=== PATIENT | male | born 1970 | race Caucasian/White ===

== ENCOUNTER → 2016-07-28 | Outpatient (CLI) | payer OTHER ==
[2016-07-28 10:46] LABS: ALANINE AMINOTRANSFERASE 27 U/L (21-72); ALBUMIN 3.4 g/dL (3.5-5.0); ALKALINE PHOSPHATASE 63 U/L (38-126); ANION GAP 11 (5-19); ASPARTATE AMINO TRANSFERASE 12 U/L (17-59); BILIRUBIN,TOTAL 1.2 mg/dL (0.2-1.3); BLOOD UREA NITROGEN 17 mg/dL (7-20); CALCIUM 9.1 mg/dL (8.4-10.2); CARBON DIOXIDE 26 mmol/L (22-30); CHLORIDE 97 mmol/L (98-107); CHOLESTEROL 286.59 mg/dL (0-200); CREATININE RESULT 1.07 mg/dL (0.52-1.25); Direct HDL 45 mg/dL (>40); GLUCOSE 336 mg/dL (75-110); POTASSIUM 4.8 mmol/L (3.6-5.0); SODIUM 134.3 mmol/L (137-145); TOTAL PROTEIN 6.3 g/dL (6.3-8.2); TRIGLYCERIDES 178 mg/dL (<150)
[2016-07-28 10:57] LABS: DIRECT LDL 216 mg/dL (<100)
[2016-07-28 11:05] LABS: VLDL CHOLESTEROL 35.6 mg/dL (10-31)
== END ==
LOC: OD 09:20
PROVIDERS: ATTEND Internal Medicine Cardiovascular Disease
DX: I10 Essential (primary) hypertension (principal); E78.2 Mixed hyperlipidemia
CPT/HCPCS: 36415; 80053; 80061

== ENCOUNTER 2016-08-11 11:23 | Inpatient (IN) | payer OTHER ==
--- NOTE | 2016-08-11 11:55 | ER Document Report ---
ED Medical Screen (RME) - General Stated Complaint: ABDOMINAL PAIN Notes: onset: 2 days ago but has this on/off for the past 6 months c/o abdominal pain starting in the epigastric area without n/v. Last BM: today, nl denies burning chest pain DM, HTN, HLD denies etoh use I have greeted and performed a rapid initial assessment of this patient. A comprehensive ED assessment and evaluation of the patient, analysis of test results and completion of the medical decision making process will be conducted by additional ED providers. TRAVEL OUTSIDE OF THE [place] IN LAST 30 DAYS: No - Related Data Allergies/Adverse Reactions: codeine [Codeine] Allergy (Verified 08/11/16 11:52) Past Medical History - Past Medical History Cardiac Medical History: Reports: Hx Coronary Artery Disease, Hx Heart Attack - 40's, Hx Hypertension Endocrine Medical History: Reports: Hx Diabetes Mellitus Type 2 Psychiatric Medical History: Denies: Hx Depression Past Surgical History: Reports: Hx Cardiac Catheterization, Hx Cardiac Surgery - CABG, Hx Cholecystectomy - Immunizations Hx Diphtheria, Pertussis, Tetanus Vaccination: Yes Physical Exam - Vital signs Vitals: Temp Pulse Resp BP Pulse Ox 97.7 F 85 18 182/97 H 97 08/11/16 11:27 08/11/16 11:27 08/11/16 11:27 08/11/16 11:27 08/11/16 11:27 Course - Vital Signs Vital signs: Temp Pulse Resp BP Pulse Ox 97.7 F 85 18 182/97 H 97 08/11/16 11:27 08/11/16 11:27 08/11/16 11:27 08/11/16 11:27 08/11/16 11:27
--- NOTE | 2016-08-11 12:21 | ER Document Report ---
ED General - General Chief Complaint: Lower Abdominal Pain Stated Complaint: ABDOMINAL PAIN Mode of Arrival: Ambulatory Information source: Patient Notes: Patient presents to the emergency department with complaints of abdominal pain for the past 2 days. Patient gives history of the same abdominal pain in May. He reports he was evaluated twice int the emergency department at that time and they could never find what was wrong with him. He reported he never followed up with GI or primary care provider for this pain. He reports it eventually went away. He c/o upper abdominal pain, pain worse on right side. denies fever vomiting diarrhea. Reports he has lost 20 lbs in 2 weeks. Just finished prednisone for bronchitis. TRAVEL OUTSIDE OF THE [place] IN LAST 30 DAYS: No - HPI Onset: Other - 2 days Quality of pain: Achy Severity: Severe Pain Level: 4 Associated symptoms: None Exacerbated by: Denies Relieved by: Denies - Related Data Allergies/Adverse Reactions: codeine [Codeine] Allergy (Verified 08/11/16 11:52) Home Medications: Current Home Medications Aspirin [Aspirin 81 mg Chewable Tablet] 81 mg PO DAILY 08/11/16 [History] Carvedilol [Coreg 25 mg Tablet] 25 mg PO Q12 08/11/16 [History] Hydrochlorothiazide [Hydrodiuril 25 mg Tablet] 25 mg PO DAILY 08/11/16 [History] Loratadine [Claritin 10 mg Tablet] 10 mg PO DAILY 08/11/16 [History] Metformin HCl [Glucophage] 1,000 mg PO TID 08/11/16 [History] Rosuvastatin Calcium [Crestor] 40 mg PO DAILY 08/11/16 [History] Past Medical History - General Information source: Patient - Social History Smoking Status: Never Smoker Cigarette use (# per day): No Frequency of alcohol use: Occasional Drug Abuse: None Occupation: [employer] Lives with: Family Family History: Reviewed & Not Pertinent Patient has suicidal ideation: No Patient has homicidal ideation: No - Past Medical History Cardiac Medical History: Reports: Hx Coronary Artery Disease, Hx Heart Attack - 40's, Hx Hypertension Endocrine Medical History: Reports: Hx Diabetes Mellitus Type 2 Renal/ Medical History: Denies: Hx Peritoneal Dialysis Psychiatric Medical History: Denies: Hx Depression Past Surgical History: Reports: Hx Cardiac Catheterization, Hx Cardiac Surgery - CABG, Hx Cholecystectomy - Immunizations Hx Diphtheria, Pertussis, Tetanus Vaccination: Yes Hx Pneumococcal Vaccination: 05/02/14 Review of Systems - Review of Systems Notes: Review HPI for review of systems., All other systems negative Physical Exam - Vital signs Vitals: Temp Pulse Resp BP Pulse Ox 97.7 F 85 18 182/97 H 97 08/11/16 11:27 08/11/16 11:27 08/11/16 11:27 08/11/16 11:27 08/11/16 11:27 - Notes Notes: PHYSICAL EXAMINATION: GENERAL: Nontoxic looking in no acute distress HEAD: Atraumatic, normocephalic. EYES: Pupils equal round extraocular movements intact, sclera anicteric, conjunctiva are normal. ENT: nares patent, Moist mucous membranes. NECK: Normal range of motion, supple without lymphadenopathy LUNGS: CTAB and equal. No wheezes rales or rhonchi. HEART: Regular rate and rhythm without murmurs ABDOMEN: Soft, upper abdominal tenderness. No guarding, no rebound BACK: Denies pain EXTREMITIES: Normal range of motion, no pitting edema. No cyanosis. NEUROLOGICAL: Cranial nerves grossly intact. Normal sensory/motor exams. PSYCH: Normal mood, normal affect. SKIN: Warm, Dry, normal turgor, no rashes or lesions noted Course - Re-evaluation Re-evalutation: 08/11/16 13:25 I have consulted the attending provider dr venegas per [facility] guidelines, agrees with ct 08/11/16 15:03 CT reviewed no acute process, dr venegas consulted, he went in to assess patient , reports if pt can tolerated PO fluids, decreased pain with percocet he will be okay to go home, fu with pcp, GI. Pt updated on plan and agree's. 08/11/16 15:40 The Percocet given 30 minutes go still having abdominal pain. Discussed with dr venegas, he advised admission, contacted Dr England. 08/11/16 16:00 dr yifan bonds consulted agree's to admission - Vital Signs Vital signs: Temp Pulse Resp BP Pulse Ox 98.6 F 80 16 158/102 H 98 08/11/16 16:06 08/11/16 16:06 08/11/16 18:01 08/11/16 18:00 08/11/16 18:01 - Laboratory Result Diagrams: 08/11/16 12:10 08/11/16 12:10 Laboratory results interpreted by me: 08/11/16 08/11/16 08/11/16 12:10 12:10 12:10 WBC 16.5 H RBC 5.74 H Plt Count 540 H Absolute Neutrophils 12.2 H Sodium 133.6 L Glucose 334 H AST 12 L C-Reactive Protein 19.8 H Amylase 127 H Lipase 677.1 H Urine Protein Urine Glucose (UA) Urine Ketones Urine Blood 08/11/16 12:41 WBC RBC Plt Count Absolute Neutrophils Sodium Glucose AST C-Reactive Protein Amylase Lipase Urine Protein >=500 H Urine Glucose (UA) >=500 H Urine Ketones TRACE H Urine Blood SMALL H - Diagnostic Test Radiology reviewed: Image reviewed, Reports reviewed - IMPRESSION: NO SIGNIFICANT OR ACUTE FINDING IN THE ABDOMEN OR PELVIS ON CT SCAN WITH IV CONTRAST - Consults No standard instances Time consulted: 15:43 Reason for consultation: 08/11/16 15:[address] england for abdominal pain admission Discharge - Discharge Clinical Impression: Abdominal pain, Elevated amylase and lipase Condition: Stable Disposition: ADMITTED INPATIENT Admitting Provider: Isela Morgan cammie Unit Admitted: Medical Floor
[2016-08-11 12:38] LABS: ABSOLUTE BASOPHILS # (AUTO) 0.2 10^3/uL (0.0-0.2); ABSOLUTE EOSINOPHILS # (AUTO) 0.3 10^3/uL (0.0-0.6); ABSOLUTE LYMPHOCYTES (AUTO) 2.8 10^3/uL (0.5-4.7); ABSOLUTE MONOCYTES (AUTO) 0.9 10^3/uL (0.1-1.4); ABSOLUTE NEUT (AUTO) 12.2 10^3/uL (1.7-8.2); BASOPHILS % (AUTO) 1.3 % (0-2); HEMATOCRIT 48.4 % (37.9-51.0); HEMOGLOBIN 16.3 g/dL (13.5-17.0); HGB HCT DIFFERENCE 0.5; LYMPHOCYTES % (AUTO) 16.9 % (13-45); MEAN CORPUSCULAR HEMOGLOBIN 28.4 pg (27.0-33.4); MEAN CORPUSCULAR HGB CONC 33.7 g/dL (32.0-36.0); MEAN CORPUSCULAR VOLUME 84 fl (80-97); MONOCYTES % (AUTO) 5.7 % (3-13); RED BLOOD COUNT 5.74 10^6/uL (4.35-5.55); RED CELL DISTRIBUTION WIDTH 12.5 % (11.5-14.0); SEGMENTED NEUTROPHILS % (AUTO) 74.1 % (42-78); WHITE BLOOD COUNT 16.5 10^3/uL (4.0-10.5)
[2016-08-11 12:44] LABS: ALANINE AMINOTRANSFERASE 25 U/L (21-72); ALBUMIN 3.5 g/dL (3.5-5.0); ALKALINE PHOSPHATASE 77 U/L (38-126); AMYLASE 127 U/L (30-110); ANION GAP 8 (5-19); ASPARTATE AMINO TRANSFERASE 12 U/L (17-59); BLOOD UREA NITROGEN 18 mg/dL (7-20); CALCIUM 9.6 mg/dL (8.4-10.2); CARBON DIOXIDE 28 mmol/L (22-30); CHLORIDE 98 mmol/L (98-107); CREATININE RESULT 1.03 mg/dL (0.52-1.25); GLUCOSE 334 mg/dL (75-110); LIPASE 677.1 U/L (23-300); SODIUM 133.6 mmol/L (137-145); TOTAL PROTEIN 6.5 g/dL (6.3-8.2)
[2016-08-11 13:05] LABS: APPEARANCE,URINE SLIGHTLY-CLOUDY; BILIRUBIN,URINE NEGATIVE (NEGATIVE); GLUCOSE, URINE >=500 mg/dL (NEGATIVE); KETONES,URINE TRACE mg/dL (NEGATIVE); LEUKOCYTE ESTERASE,URINE NEGATIVE (NEGATIVE); NITRITE,URINE NEGATIVE (NEGATIVE); PROTEIN,URINE >=500 mg/dL (NEGATIVE); URINE SPECIFIC GRAVITY 1.029; UROBILINOGEN,URINE NEGATIVE mg/dL (<2.0)
[2016-08-11] MEDS ORDERED: OXYCODONE-ACETAMINOPHEN 5-325 MG TABLET PO ONE (15:01)
[2016-08-11] MEDS ORDERED: ACETAMINOPHEN 325 MG TABLET PO PRN (17:13)
[2016-08-11] MEDS ORDERED: IPRATROPIUM/ALBUTEROL 0.5-2.5 MG/3 ML AMPUL NEB PRN (17:13)
[2016-08-11] MEDS ORDERED: ALBUTEROL SULFATE 0.083% NEB 2.5 MG/3 ML AMPUL NEB PRN (17:13)
[2016-08-11] MEDS ORDERED: METOPROLOL TARTRATE PF/INJ 5 MG/5 ML SDV IV PRN (17:22)
[2016-08-11] MEDS ORDERED: GLUCAGON,HUMAN RECOMB 1 MG INJ IM PRN (17:24)
[2016-08-11] MEDS ORDERED: DEXTROSE 50%-WATER 25 GM/50 ML DISP.SYRIN IV PRN ×2 (17:24)
[2016-08-11] MEDS ORDERED: DEXTROSE 40% GEL 15 GM TUBE PO PRN ×2 (17:24)
--- NOTE | 2016-08-11 17:45 | PDOC H&P ---
History of Present Illness Admission Date/PCP: 08/11/16 16:08 Patient complains of: Epigastric pain History of Present Illness: SHARI FAM JR is a 46 year old male whose PCP is Dr. Luo, linting machine operator is Dr. Tse presents to the ER from home with a 2 day history of sudden onset sharp stabbing epigastric pain radiating through to his back, no alleviating or exacerbating factors, associated with some shortness of breath and nausea with loss of appetite but no cardiac type chest pain, palpitations, fevers, chills, diarrhea, constipation or any change in his stools, dysuria, headache, dizziness , numbness and tingling, syncope or presyncope. This is the second such episode since May when it was considered potential cardiac equivalent and he was evaluated in the emergency department and ruled out for acute cardiac ischemia, sent home with pain medicines and a referral for gastroenterology evaluation. He does have a strong coronary history having undergone 4 vessel CABG in 2008 with a history of long-standing hypertension and diabetes. He denies heartburn, food avoidance, burping belching, increased flatus, morning metallic taste in his mouth. He was diagnosed with acid reflux in the past, tried on Nexium but he didn't feel like he got any relief and stop that medication. He does take an aspirin daily due to his coronary disease but he denies chronic NSAID use including BC powders and Goody's powders. Family history is negative for GI disease including peptic ulcer disease, gastric tumors, Crohn's disease or ulcerative colitis. Evaluation in the emergency department shows a markedly elevated lipase, mildly elevated amylase and leukocytosis so we were asked to admit the patient for further evaluation and management of a presumptive acute pancreatitis. The patient does not have a gallbladder, and denies anything more than rare alcohol use. He denies controlled substance or street drug abuse. Past Medical History Cardiac Medical History: Reports: Coronary Artery Disease, Myocardial Infarction - 40's, Hyperlipidema, Hypertension Endocrine Medical History: Reports: Diabetes Mellitus Type 2 Psychiatric Medical History: Denies: Depression Past Surgical History Past Surgical History: Reports: Cardiac Catheterization, Cholecystectomy Social History Information Source: Patient Lives with: Family Smoking Status: Never Smoker Frequency of Alcohol Use: None Hx Recreational Drug Use: No Hx Prescription Drug Abuse: No - Advance Directive Resuscitation Status: Full Code Family History Family History: CAD, DM, Hyperlipidemia, Hypertension Parental Family History Reviewed: Yes Children Family History Reviewed: Yes Sibling(s) Family History Reviewed.: Yes Medication/Allergy Home Medications: Aspirin [Aspirin 81 mg Chewable Tablet] 81 mg PO DAILY 08/11/16 Carvedilol [Coreg 25 mg Tablet] 25 mg PO Q12 08/11/16 Hydrochlorothiazide [Hydrodiuril 25 mg Tablet] 25 mg PO DAILY 08/11/16 Loratadine [Claritin 10 mg Tablet] 10 mg PO DAILY 08/11/16 Metformin HCl [Glucophage] 1,000 mg PO TID 08/11/16 Rosuvastatin Calcium [Crestor] 40 mg PO DAILY 08/11/16 Allergies/Adverse Reactions: codeine [Codeine] Allergy (Verified 08/11/16 11:52) Review of Systems Constitutional: ABSENT: chills, fever(s), headache(s), weight gain, weight loss Eyes: ABSENT: visual disturbances Ears: ABSENT: hearing changes Cardiovascular: ABSENT: chest pain, dyspnea on exertion, edema, orthropnea, palpitations Respiratory: PRESENT: dyspnea. ABSENT: cough, hemoptysis Gastrointestinal: PRESENT: abdominal pain, nausea. ABSENT: constipation, diarrhea, hematemesis, hematochezia, vomiting Genitourinary: ABSENT: dysuria, hematuria Musculoskeletal: ABSENT: joint swelling Integumentary: ABSENT: rash, wounds Neurological: ABSENT: abnormal gait, abnormal speech, confusion, dizziness, focal weakness, syncope Psychiatric: ABSENT: anxiety, depression Endocrine: ABSENT: cold intolerance, heat intolerance, polydipsia, polyuria Hematologic/Lymphatic: ABSENT: easy bleeding, easy bruising Physical Exam Vital Signs: Temp Pulse Resp BP Pulse Ox 98.6 F 80 18 164/107 H 97 08/11/16 16:06 08/11/16 16:06 08/11/16 16:15 08/11/16 16:15 08/11/16 16:15 PHYSICAL EXAM GENERAL: NAD; well developed, well nourished; mild obese; alert and oriented to person, place, time, situation HEENT: normocephalic, atraumatic; EOMI, PERRLA, no conjunctival injection, no scleral icterus; oral mucosa moist, normal dentition; neck supple, no LAD, normal ROM RESPIRATORY: no accessory muscle use, no increased WOB, good air entry bilaterally; no wheezes, rales, rhonchi; no inspiratory crackles CARDIO: no JVD; RRR; no systolic murmur; no tachycardia VASCULAR: no carotid bruit; no abdominal bruit; no pallor; 2+ radial, DP pulse ; normal capillary refill GI: soft; nondistended; normal bowel sounds; no hepato spleno megaly; no rebound, rigidity, but does have sharp epigastric pain to palpation with voluntary guarding NEURO: normal patella reflexes; normal sensation; normal motor function; no dysarthria; no nystagmus; tongue protrudes midline; normal finger to nose; MSK: 5/5 strength; normal ROM hips; ambulatory without assistance; no tenderness EXTREMITIES: no calf tender; no palpable cords in calf; no clubbing, cyanosis , pedal edema PSYCH: normal affect, normal mood SKIN: warm; moist; no petechiae; no telengectasias; no jaundice; no rash Results Laboratory Results: Labs reviewed and a CBC shows a leukocytosis without anemia he does have a mild thrombocytosis as well, urinalysis shows proteinuria, glucosuria, trace ketones , small amount of blood but otherwise negative. Chemistry show a mildly low sodium of 134, upper limit normal potassium of 5.0, normal renal function with a creatinine 1.03, LFTs are normal, lipase is 677, amylase is 127 Impressions: Abdomen/Pelvis CT 08/11/16 13:25 IMPRESSION: NO SIGNIFICANT OR ACUTE FINDING IN THE ABDOMEN OR PELVIS ON CT SCAN WITH IV CONTRAST. Status: Image reviewed by me - His pancreas looks completely normal to me and I don't see any signs of inflammation, mass or obstruction. Likewise liver parenchyma looks normal, gallbladder surgically absent. The remainder of the alimentary canal appears normal, distal esophagus does not show any wall thickening, mass or external compression, stomach is normal in size without obvious abnormality. Assessment & Plan - Diagnosis (1) Acute pancreatitis Qualifiers: Pancreatitis type: unspecified pancreatitis type Is this a current diagnosis for this admission?: YesPlan: Admit patient to medical floor for routine pancreatitis treatment including bowel rest, analgesics, antiemetics, IV fluids. We'll check a C reactive protein, lipid panel and trend his amylase and lipase. (2) Elevated amylase and lipase Is this a current diagnosis for this admission?: YesPlan: It's actually unclear to me whether an acute pancreatitis accounts for his presentation are not given the normal CT scan findings but that is the working diagnosis. The differential diagnosis is extensive and includes gastritis, esophagitis as well as peptic ulcer disease all of which can cause an elevation of her amylase and lipase. Therefore I think it also prudent to check an upper GI series looking for gastric erosions or ulcer disease, screen for H. pylori with serum antibody test and cover with PPI therapy twice a day. I suspect at some point in the near future he will need referral to gastroenterology for upper endoscopy. (3) Diabetes Qualifiers: Diabetes mellitus type: type 2 Diabetes mellitus complication status: with circulatory complication Diabetes mellitus complication detail: with other circulatory complications Diabetes mellitus jail insulin use: without ocean transportation intermediary use Qualified Code(s): E11.59 - Type 2 diabetes mellitus with other circulatory complications Is this a current diagnosis for this admission?: YesPlan: Cover with sliding scale while he is in by mouth, check hemoglobin A1c in the morning. (4) Abdominal pain Is this a current diagnosis for this admission?: YesPlan: As above. (5) Coronary artery disease Qualifiers: Coronary Disease-Associated Artery/Lesion type: [place] artery [place] vs. transplanted heart: [place] heart Associated angina: without angina Qualified Code(s): I25.10 - Atherosclerotic heart disease of [place] coronary artery without angina pectoris Is this a current diagnosis for this admission?: YesPlan: Stable at this time and under evaluation routinely by his linting machine operator Dr. Tse. Hold aspirin therapy for now given my strong suspicion for peptic ulcer disease. Continue beta marcella and statin therapy. (6) Accelerated hypertension Is this a current diagnosis for this admission?: YesPlan: Patient has not taken his home meds yet today spending most of the day in the emergency department, therefore will resume his usual regimen and add when necessary Lopressor for excessive hypertension. - Time Time Spent: Greater than 70 Minutes Medications reviewed and adjusted accordingly: Yes Anticipated discharge: Home Within: within 48 hours - Inpatient Certification Medical Necessity: Significant Comorbidiites Make Outpatient Treatment Too Risky , Need For IV Fluids, Need for Pain Control
[2016-08-11] MEDS ORDERED: ENOXAPARIN SODIUM INJ 40 MG/0.4 ML DISP.SYRIN SUBCUT ONE (18:30)
[2016-08-11] MEDS ORDERED: PANTOPRAZOLE SODIUM 40 MG VIAL IV ONE (19:00)
[2016-08-11] MEDS: MORPHINE SULFATE 10 MG/ML INJ IV PRN (20:37)
[2016-08-11] MEDS: RINGERS SOLUTION,LACTATED 1,000 ML IV PRN (20:37)
[2016-08-11] MEDS: CARVEDILOL 12.5 MG TABLET PO SCH (21:30)
[2016-08-11] MEDS: ONDANSETRON HCL INJ/PF 4 MG/2 ML SDV IV PRN (21:30)
[2016-08-11] MEDS: INSULIN LISPRO 100 UNIT/ML 3 ML VIAL SUBCUT PRN (21:30)
[2016-08-12 05:28] LABS: ABSOLUTE BASOPHILS # (AUTO) 0.1 10^3/uL (0.0-0.2); ABSOLUTE EOSINOPHILS # (AUTO) 0.2 10^3/uL (0.0-0.6); ABSOLUTE LYMPHOCYTES (AUTO) 1.6 10^3/uL (0.5-4.7); ABSOLUTE MONOCYTES (AUTO) 0.9 10^3/uL (0.1-1.4); BASOPHILS % (AUTO) 0.6 % (0-2); EOSINOPHILS % (AUTO) 1.7 % (0-6); HEMOGLOBIN 16.1 g/dL (13.5-17.0); HGB HCT DIFFERENCE 1.3; LYMPHOCYTES % (AUTO) 11.3 % (13-45); MEAN CORPUSCULAR HEMOGLOBIN 29.2 pg (27.0-33.4); MEAN CORPUSCULAR HGB CONC 34.2 g/dL (32.0-36.0); MEAN CORPUSCULAR VOLUME 85 fl (80-97); MONOCYTES % (AUTO) 6.3 % (3-13); RED BLOOD COUNT 5.51 10^6/uL (4.35-5.55); RED CELL DISTRIBUTION WIDTH 12.8 % (11.5-14.0); SEGMENTED NEUTROPHILS % (AUTO) 80.1 % (42-78); WHITE BLOOD COUNT 13.8 10^3/uL (4.0-10.5)
[2016-08-12 05:42] LABS: ALANINE AMINOTRANSFERASE 119 U/L (21-72); ALBUMIN 2.5 g/dL (3.5-5.0); ALKALINE PHOSPHATASE 110 U/L (38-126); AMYLASE 106 U/L (30-110); ANION GAP 10 (5-19); ASPARTATE AMINO TRANSFERASE 133 U/L (17-59); BILIRUBIN,TOTAL 1.1 mg/dL (0.2-1.3); BLOOD UREA NITROGEN 18 mg/dL (7-20); C-REACTIVE PROTEIN 22.5 mg/L (<10.0); CALCIUM 9.1 mg/dL (8.4-10.2); CARBON DIOXIDE 22 mmol/L (22-30); CHLORIDE 100 mmol/L (98-107); CHOLESTEROL 228.41 mg/dL (0-200); CREATININE RESULT 0.88 mg/dL (0.52-1.25); Direct HDL 43 mg/dL (>40); GLUCOSE 260 mg/dL (75-110); LIPASE 379.7 U/L (23-300); SODIUM 132.2 mmol/L (137-145); TOTAL PROTEIN 5.7 g/dL (6.3-8.2); TRIGLYCERIDES 201 mg/dL (<150)
[2016-08-12 05:51] LABS: DIRECT LDL 187 mg/dL (<100)
[2016-08-12 05:53] LABS: VLDL CHOLESTEROL 40.2 mg/dL (10-31)
[2016-08-12] MEDS: INSULIN LISPRO 100 UNIT/ML 3 ML VIAL SUBCUT PRN (05:59)
[2016-08-12] MEDS: MORPHINE SULFATE 10 MG/ML INJ IV PRN (06:00)
[2016-08-12] MEDS: ONDANSETRON HCL INJ/PF 4 MG/2 ML SDV IV PRN (06:00)
[2016-08-12] MEDS: RINGERS SOLUTION,LACTATED 1,000 ML IV PRN ×3 (06:00→21:47)
[2016-08-12] MEDS: ENOXAPARIN SODIUM INJ 40 MG/0.4 ML DISP.SYRIN SUBCUT SCH (07:47)
[2016-08-12] MEDS: OXYCODONE-ACETAMINOPHEN 5-325 MG TABLET PO PRN ×3 (07:48→19:48)
[2016-08-12] MEDS ORDERED: PROMETHAZINE HCL INJ 25 MG/1 ML VIAL IV PRN (08:12)
--- NOTE | 2016-08-12 08:41 | EKG REPORT ---
SEVERITY:- ABNORMAL ECG - SINUS RHYTHM LEFT ATRIAL ABNORMALITY INFERIOR INFARCT, AGE INDETERMINATE : Confirmed by: Fco Yuan MD 12-Aug-2016 08:41:39
[2016-08-12] MEDS: CARVEDILOL 12.5 MG TABLET PO SCH ×2 (09:39→21:47)
[2016-08-12] MEDS: PANTOPRAZOLE SODIUM 40 MG VIAL IV SCH ×2 (09:40→21:47)
[2016-08-12] MEDS ORDERED: HYDROMORPHONE HCL INJ/PF 2 MG/ML AMPULE IV PRN (09:45)
[2016-08-12] MEDS ORDERED: (PENDING PHARMACY ID) (Rosuvastatin Calcium [Crestor] 40 MG) PO SCH (10:00)
[2016-08-12] MEDS ORDERED: INSULIN GLARGINE,HUM.REC.ANLOG 1,000 UNIT/10 ML UNIT SUBCUT ONE (12:00)
--- NOTE | 2016-08-12 13:55 | PDOC PROGRESS REPORT ---
Subjective Progress Note for:: 08/12/16 Subjective:: Reason for visit: Follow-up pancreatitis Hospital course: SHARI FAM JR is a 46 year old male whose PCP is Dr. Luo, sprinkler fitter helper is Dr. Tse presents to the ER from home with a 2 day history of sudden onset sharp stabbing epigastric pain radiating through to his back, no alleviating or exacerbating factors, associated with some shortness of breath and nausea with loss of appetite but no cardiac type chest pain, palpitations, fevers, chills, diarrhea, constipation or any change in his stools, dysuria, headache, dizziness , numbness and tingling, syncope or presyncope. This is the second such episode since May when it was considered potential cardiac equivalent and he was evaluated in the emergency department and ruled out for acute cardiac ischemia, sent home with pain medicines and a referral for gastroenterology evaluation. He does have a strong coronary history having undergone 4 vessel CABG in 2008 with a history of long-standing hypertension and diabetes. He denies heartburn, food avoidance, burping belching, increased flatus, morning metallic taste in his mouth. He was diagnosed with acid reflux in the past, tried on Nexium but he didn't feel like he got any relief and stop that medication. He does take an aspirin daily due to his coronary disease but he denies chronic NSAID use including BC powders and Goody's powders. Family history is negative for GI disease including peptic ulcer disease, gastric tumors, Crohn's disease or ulcerative colitis. Subjective: He reports worsened nausea and vomiting after a dose of morphine this morning. His epigastric pain is unchanged. He denies fevers, chills, diarrhea, constipation, headache, vision changes. Review of systems: Total ten systems reviewed and pertinent positives and negatives noted above remaining systems are negative. Physical Exam Vital Signs: Temp Pulse Resp BP Pulse Ox 97.4 F 78 18 134/83 H 95 08/12/16 12:00 08/12/16 12:00 08/12/16 12:00 08/12/16 12:00 08/12/16 12:00 Intake & Output 08/11/16 08/12/16 08/13/16 06:59 06:59 06:59 Intake Total 100 1376 Balance 100 1376 Weight 84.7 kg PHYSICAL EXAM GENERAL: NAD; well developed, well nourished; mild obese; alert and oriented to person, place, time, situation HEENT: normocephalic, atraumatic; no conjunctival injection, no scleral icterus ; oral mucosa moist, RESPIRATORY: no accessory muscle use, no increased WOB, good air entry bilaterally; no wheezes, rales, rhonchi; no inspiratory crackles CARDIO: no JVD; RRR; no systolic murmur; no tachycardia VASCULAR: no pallor; 2+ radial, DP pulse; normal capillary refill GI: soft; nondistended; normal bowel sounds; no hepato spleno megaly; no rebound, rigidity, but does have sharp epigastric pain to palpation without voluntary guarding NEURO: normal patella reflexes; normal sensation; normal motor function; no dysarthria; MSK: 5/5 strength; normal ROM hips; ambulatory without assistance; no tenderness EXTREMITIES: no calf tender; no palpable cords in calf; no clubbing, cyanosis , pedal edema PSYCH: normal affect, normal mood SKIN: warm; moist; no petechiae; no telengectasias; no jaundice; no rash Results Laboratory Results: 08/12/16 05:17 08/12/16 05:17 08/12/16 08/12/16 05:17 05:17 WBC 13.8 H RBC 5.51 Hgb 16.1 Hct 47.0 MCV 85 MCH 29.2 MCHC 34.2 RDW 12.8 Plt Count 403 Seg Neutrophils % 80.1 H Lymphocytes % 11.3 L Monocytes % 6.3 Eosinophils % 1.7 Basophils % 0.6 Absolute Neutrophils 11.0 H Absolute Lymphocytes 1.6 Absolute Monocytes 0.9 Absolute Eosinophils 0.2 Absolute Basophils 0.1 Sodium 132.2 L Potassium 5.0 Chloride 100 Carbon Dioxide 22 Anion Gap 10 BUN 18 Creatinine 0.88 Est GFR ( Amer) > 60 Est GFR (Non-Af Amer) > 60 Glucose 260 H Calcium 9.1 Total Bilirubin 1.1 AST 133 H ALT 119 H Alkaline Phosphatase 110 C-Reactive Protein 22.5 H Total Protein 5.7 L Albumin 2.5 L Triglycerides 201 H Cholesterol 228.41 H LDL Cholesterol Direct 187 H VLDL Cholesterol 40.2 H HDL Cholesterol 43 Amylase 106 Lipase 379.7 H Labs are reviewed, worsening LFTs, poorly controlled cholesterol, poorly controlled diabetes with hemoglobin A1c greater than 13, CBC shows worsening leukocytosis. Impressions: Abdomen/Pelvis CT 08/11/16 13:25 IMPRESSION: NO SIGNIFICANT OR ACUTE FINDING IN THE ABDOMEN OR PELVIS ON CT SCAN WITH IV CONTRAST. Status: Imported from PACS - Report reviewed Assessment & Plan - Diagnosis (1) Acute pancreatitis Qualifiers: Pancreatitis type: unspecified pancreatitis type Is this a current diagnosis for this admission?: YesPlan: Working diagnosis. Continue care for routine pancreatitis including bowel rest , analgesics, antiemetics, IV fluids. We'll trend C reactive protein, lipid panel, amylase and lipase. Change morphine to lower dose Dilaudid to remove his confounder regarding his nausea and vomiting. (2) Elevated amylase and lipase Is this a current diagnosis for this admission?: YesPlan: It's actually unclear to me whether an acute pancreatitis alone accounts for his presentation are not given the normal CT scan findings but that is the working diagnosis. The differential diagnosis is extensive and includes viral gastritis, esophagitis as well as peptic ulcer disease all of which can cause an elevation of her amylase and lipase. Therefore I think it also prudent to check an upper GI series looking for gastric erosions or ulcer disease, screen for H. pylori with serum antibody test and cover with PPI therapy twice a day. I suspect at some point in the near future he will need referral to gastroenterology for upper endoscopy. (3) Diabetes Qualifiers: Diabetes mellitus type: type 2 Diabetes mellitus complication status: with circulatory complication Diabetes mellitus complication detail: with other circulatory complications Diabetes mellitus intermodal owner operator truck driver insulin use: without intermodal owner operator truck driver use Qualified Code(s): E11.59 - Type 2 diabetes mellitus with other circulatory complications Is this a current diagnosis for this admission?: YesPlan: Cover with sliding scale while he is in by mouth; hemoglobin A1c greater than 13. Patient reports 2 years ago his hemoglobin A1c was 13 and he was started on Lantus titrated up to 60 units daily and had good improvement with hemoglobin A1c down below 7.5 but for reasons that are not entirely clear to me he stopped the Lantus and here we are again. He claims he was told he didn't need it anymore. (4) Abdominal pain Is this a current diagnosis for this admission?: YesPlan: As above. (5) Coronary artery disease Qualifiers: Coronary Disease-Associated Artery/Lesion type: [place] artery [place] vs. transplanted heart: [place] heart Associated angina: without angina Qualified Code(s): I25.10 - Atherosclerotic heart disease of [place] coronary artery without angina pectoris Is this a current diagnosis for this admission?: Yes (6) Accelerated hypertension Is this a current diagnosis for this admission?: YesPlan: Significantly improved with resumption of his usual home regimen. (7) Abnormal LFTs Is this a current diagnosis for this admission?: YesPlan: Unclear etiology. We'll send for [place], hepatitis screen. CT scan reviewed again and liver has no abnormal appearance, gallbladder surgically absent. Trend LFTs. - Time Time Spent with patient: 35 or more minutes - Plan Summary Plan Summary: Case discussed with patient and at the bedside, total 45 minutes spent in the care of this patient with over half that time in consultation.
[2016-08-12] MEDS: PROMETHAZINE HCL INJ 25 MG/1 ML VIAL IV PRN ×2 (15:32→21:47)
[2016-08-13 05:28] LABS: ABSOLUTE BASOPHILS # (AUTO) 0.1 10^3/uL (0.0-0.2); ABSOLUTE EOSINOPHILS # (AUTO) 0.3 10^3/uL (0.0-0.6); ABSOLUTE LYMPHOCYTES (AUTO) 2.8 10^3/uL (0.5-4.7); ABSOLUTE MONOCYTES (AUTO) 0.7 10^3/uL (0.1-1.4); ABSOLUTE NEUT (AUTO) 8.1 10^3/uL (1.7-8.2); BASOPHILS % (AUTO) 0.7 % (0-2); EOSINOPHILS % (AUTO) 2.9 % (0-6); HEMATOCRIT 41.9 % (37.9-51.0); HEMOGLOBIN 14.2 g/dL (13.5-17.0); HGB HCT DIFFERENCE 0.7; LYMPHOCYTES % (AUTO) 23.3 % (13-45); MEAN CORPUSCULAR HGB CONC 33.8 g/dL (32.0-36.0); MEAN CORPUSCULAR VOLUME 86 fl (80-97); RED BLOOD COUNT 4.88 10^6/uL (4.35-5.55); RED CELL DISTRIBUTION WIDTH 12.8 % (11.5-14.0); SEGMENTED NEUTROPHILS % (AUTO) 67.1 % (42-78); WHITE BLOOD COUNT 12.1 10^3/uL (4.0-10.5)
[2016-08-13] MEDS: OXYCODONE-ACETAMINOPHEN 5-325 MG TABLET PO PRN ×4 (06:25→21:15)
[2016-08-13] MEDS: PROMETHAZINE HCL INJ 25 MG/1 ML VIAL IV PRN (06:25)
[2016-08-13 07:08] LABS: ALANINE AMINOTRANSFERASE 117 U/L (21-72); ALBUMIN 2.4 g/dL (3.5-5.0); ALKALINE PHOSPHATASE 109 U/L (38-126); ANION GAP 9 (5-19); ASPARTATE AMINO TRANSFERASE 91 U/L (17-59); BILIRUBIN,TOTAL 0.8 mg/dL (0.2-1.3); BLOOD UREA NITROGEN 21 mg/dL (7-20); CALCIUM 9.1 mg/dL (8.4-10.2); CARBON DIOXIDE 22 mmol/L (22-30); CHLORIDE 102 mmol/L (98-107); CREATININE RESULT 0.91 mg/dL (0.52-1.25); GLUCOSE 203 mg/dL (75-110); LIPASE 249.2 U/L (23-300); POTASSIUM 4.9 mmol/L (3.6-5.0); SODIUM 132.6 mmol/L (137-145); TOTAL PROTEIN 5.5 g/dL (6.3-8.2)
[2016-08-13] MEDS: ENOXAPARIN SODIUM INJ 40 MG/0.4 ML DISP.SYRIN SUBCUT SCH (08:12)
[2016-08-13] MEDS ORDERED: INSULIN GLARGINE,HUM.REC.ANLOG 1,000 UNIT/10 ML UNIT SUBCUT SCH (10:00)
[2016-08-13] MEDS: CARVEDILOL 12.5 MG TABLET PO SCH ×2 (10:24→21:15)
[2016-08-13] MEDS: INSULIN GLARGINE,HUM.REC.ANLOG 300 UNIT/3 ML INSULN.PEN SUBCUT SCH (10:25)
[2016-08-13] MEDS: PANTOPRAZOLE SODIUM 40 MG VIAL IV SCH ×2 (10:26→21:15)
--- NOTE | 2016-08-13 10:40 | PDOC PROGRESS REPORT ---
Subjective Progress Note for:: 08/13/16 Subjective:: Reason for visit: Follow-up pancreatitis Hospital course: SHARI FAM JR is a 46 year old male whose PCP is Dr. Luo, lab manager is Dr. Tse presents to the ER from home with a 2 day history of sudden onset sharp stabbing epigastric pain radiating through to his back, no alleviating or exacerbating factors, associated with some shortness of breath and nausea with loss of appetite but no cardiac type chest pain, palpitations, fevers, chills, diarrhea, constipation or any change in his stools, dysuria, headache, dizziness , numbness and tingling, syncope or presyncope. This is the second such episode since May when it was considered potential cardiac equivalent and he was evaluated in the emergency department and ruled out for acute cardiac ischemia, sent home with pain medicines and a referral for gastroenterology evaluation. He does have a strong coronary history having undergone 4 vessel CABG in 2008 with a history of long-standing hypertension and diabetes. He denies heartburn, food avoidance, burping belching, increased flatus, morning metallic taste in his mouth. He was diagnosed with acid reflux in the past, tried on Nexium but he didn't feel like he got any relief and stop that medication. He does take an aspirin daily due to his coronary disease but he denies chronic NSAID use including BC powders and Goody's powders. Family history is negative for GI disease including peptic ulcer disease, gastric tumors, Crohn's disease or ulcerative colitis. Subjective: He reports improved symptoms with no nausea or vomiting this morning. His epigastric pain has also improved. He denies fevers, chills, diarrhea, constipation, headache, vision changes. Review of systems: Total ten systems reviewed and pertinent positives and negatives noted above remaining systems are negative. Physical Exam Vital Signs: Temp Pulse Resp BP Pulse Ox 97.5 F 70 16 150/86 H 97 08/13/16 07:35 08/13/16 07:35 08/13/16 07:35 08/13/16 07:35 08/13/16 07:35 Intake & Output 08/12/16 08/13/16 08/14/16 06:59 06:59 06:59 Intake Total 100 2947 1245 Output Total 750 Balance 100 2197 1245 Weight 84.7 kg PHYSICAL EXAM GENERAL: NAD; well developed, well nourished; mild obese; alert and oriented to person, place, time, situation HEENT: normocephalic, atraumatic; no conjunctival injection, no scleral icterus ; oral mucosa moist, RESPIRATORY: no accessory muscle use, no increased WOB, good air entry bilaterally; no wheezes, rales, rhonchi; no inspiratory crackles CARDIO: no JVD; RRR; no systolic murmur; no tachycardia VASCULAR: no pallor; 2+ radial, DP pulse; normal capillary refill GI: soft; nondistended; normal bowel sounds; no hepato spleno megaly; no rebound, rigidity, but does have now mild epigastric pain to palpation without voluntary guarding and mild tympany over the epigastrium. NEURO: normal patella reflexes; normal sensation; normal motor function; no dysarthria; MSK: 5/5 strength; normal ROM hips; ambulatory without assistance; no tenderness EXTREMITIES: no calf tender; no palpable cords in calf; no clubbing, cyanosis , pedal edema PSYCH: normal affect, normal mood SKIN: warm; moist; no petechiae; no telengectasias; no jaundice; no rash Results Laboratory Results: 08/13/16 04:39 08/13/16 04:39 08/13/16 08/13/16 04:39 04:39 WBC 12.1 H RBC 4.88 Hgb 14.2 Hct 41.9 MCV 86 MCH 29.0 MCHC 33.8 RDW 12.8 Plt Count 322 Seg Neutrophils % 67.1 Lymphocytes % 23.3 Monocytes % 6.0 Eosinophils % 2.9 Basophils % 0.7 Absolute Neutrophils 8.1 Absolute Lymphocytes 2.8 Absolute Monocytes 0.7 Absolute Eosinophils 0.3 Absolute Basophils 0.1 Sodium 132.6 L Potassium 4.9 Chloride 102 Carbon Dioxide 22 Anion Gap 9 BUN 21 H Creatinine 0.91 Est GFR ( Amer) > 60 Est GFR (Non-Af Amer) > 60 Glucose 203 H Calcium 9.1 Total Bilirubin 0.8 AST 91 H ALT 117 H Alkaline Phosphatase 109 C-Reactive Protein 19.0 H Total Protein 5.5 L Albumin 2.4 L Lipase 249.2 Labs reviewed, lipase trended down to upper limit of normal, LFTs also trending down and the rest of his electrolytes are within normal limits aside from a mild hyponatremia, CBC shows improving leukocytosis stable H&H and platelet count. Assessment & Plan - Diagnosis (1) Acute pancreatitis Qualifiers: Pancreatitis type: idiopathic Is this a current diagnosis for this admission?: YesPlan: Working diagnosis. Advance diet to clears. Increase activity. Continue care for routine pancreatitis with analgesics, antiemetics, IV fluids. Improved trend for C reactive protein, lipid panel, amylase and lipase. Changed morphine to lower dose Dilaudid to remove his confounder regarding his nausea and vomiting. (2) Elevated amylase and lipase Is this a current diagnosis for this admission?: YesPlan: It's actually unclear to me whether an acute pancreatitis alone accounts for his presentation are not given the normal CT scan findings but that is the working diagnosis. The differential diagnosis is extensive and includes viral gastritis, esophagitis as well as peptic ulcer disease all of which can cause an elevation of her amylase and lipase. Therefore I think it also prudent to screen for H. pylori with serum antibody test and cover with PPI therapy twice a day. I suspect at some point in the near future he will need referral to gastroenterology for upper endoscopy but anticipate discharge on 2 week course of PPI therapy twice a day. (3) Diabetes Qualifiers: Diabetes mellitus type: type 2 Diabetes mellitus complication status: with circulatory complication Diabetes mellitus complication detail: with other circulatory complications Diabetes mellitus longterm insulin use: without longterm use Qualified Code(s): E11.59 - Type 2 diabetes mellitus with other circulatory complications Is this a current diagnosis for this admission?: YesPlan: Cover with sliding scale; hemoglobin A1c greater than 13. Patient reports 2 years ago his hemoglobin A1c was 13 and he was started on Lantus titrated up to 60 units daily and had good improvement with hemoglobin A1c down below 7.5 but for reasons that are not entirely clear to me he stopped the Lantus and here we are again. He claims he was told he didn't need it anymore. Resumed Lantus. (4) Abdominal pain Is this a current diagnosis for this admission?: YesPlan: As above. (5) Coronary artery disease Qualifiers: Coronary Disease-Associated Artery/Lesion type: [place] artery [place] vs. transplanted heart: [place] heart Associated angina: without angina Qualified Code(s): I25.10 - Atherosclerotic heart disease of [place] coronary artery without angina pectoris Is this a current diagnosis for this admission?: Yes (6) Accelerated hypertension Is this a current diagnosis for this admission?: YesPlan: Significantly improved with resumption of his usual home regimen. (7) Abnormal LFTs Is this a current diagnosis for this admission?: YesPlan: Unclear etiology, likely related to the above. Pending Jesika-Hopper viral titers, hepatitis screen. CT scan reviewed again and liver has no abnormal appearance, gallbladder surgically absent. Trend LFTs. - Time Time Spent with patient: 25-34 minutes Medications reviewed and adjusted accordingly: Yes Anticipated discharge: Home Within: within 24 hours - Plan Summary Plan Summary: Advance his diet today, trend CRP and lipase, and despite discharge home in the morning.
[2016-08-13] MEDS: INSULIN LISPRO 100 UNIT/ML 3 ML VIAL SUBCUT PRN ×2 (12:18→16:57)
[2016-08-13] MEDS: RINGERS SOLUTION,LACTATED 1,000 ML IV PRN ×2 (12:45→21:12)
[2016-08-14 04:50] LABS: ABSOLUTE BASOPHILS # (AUTO) 0.1 10^3/uL (0.0-0.2); ABSOLUTE EOSINOPHILS # (AUTO) 0.3 10^3/uL (0.0-0.6); ABSOLUTE LYMPHOCYTES (AUTO) 2.7 10^3/uL (0.5-4.7); ABSOLUTE MONOCYTES (AUTO) 0.6 10^3/uL (0.1-1.4); ABSOLUTE NEUT (AUTO) 4.1 10^3/uL (1.7-8.2); BASOPHILS % (AUTO) 0.9 % (0-2); EOSINOPHILS % (AUTO) 3.8 % (0-6); HEMATOCRIT 40.4 % (37.9-51.0); HEMOGLOBIN 13.8 g/dL (13.5-17.0); LYMPHOCYTES % (AUTO) 34.4 % (13-45); MEAN CORPUSCULAR HEMOGLOBIN 29.1 pg (27.0-33.4); MEAN CORPUSCULAR HGB CONC 34.2 g/dL (32.0-36.0); MEAN CORPUSCULAR VOLUME 85 fl (80-97); MONOCYTES % (AUTO) 7.9 % (3-13); RED BLOOD COUNT 4.74 10^6/uL (4.35-5.55); RED CELL DISTRIBUTION WIDTH 12.4 % (11.5-14.0); WHITE BLOOD COUNT 7.7 10^3/uL (4.0-10.5)
[2016-08-14 05:22] LABS: ALANINE AMINOTRANSFERASE 57 U/L (21-72); ALBUMIN 2.1 g/dL (3.5-5.0); ALKALINE PHOSPHATASE 82 U/L (38-126); AMYLASE 50 U/L (30-110); ANION GAP 5 (5-19); ASPARTATE AMINO TRANSFERASE 18 U/L (17-59); BILIRUBIN,TOTAL 0.6 mg/dL (0.2-1.3); BLOOD UREA NITROGEN 12 mg/dL (7-20); C-REACTIVE PROTEIN 17.5 mg/L (<10.0); CALCIUM 8.7 mg/dL (8.4-10.2); CARBON DIOXIDE 28 mmol/L (22-30); CHLORIDE 102 mmol/L (98-107); CREATININE RESULT 0.88 mg/dL (0.52-1.25); GLUCOSE 118 mg/dL (75-110); LIPASE 183.1 U/L (23-300); MAGNESIUM 1.6 mg/dL (1.6-2.3); SODIUM 134.5 mmol/L (137-145); TOTAL PROTEIN 5.1 g/dL (6.3-8.2)
[2016-08-14] MEDS: OXYCODONE-ACETAMINOPHEN 5-325 MG TABLET PO PRN (05:31)
[2016-08-14] MEDS: RINGERS SOLUTION,LACTATED 1,000 ML IV PRN (05:35)
[2016-08-14 06:04] LABS: POTASSIUM 3.9 mmol/L (3.6-5.0)
[2016-08-14] MEDS: ENOXAPARIN SODIUM INJ 40 MG/0.4 ML DISP.SYRIN SUBCUT SCH (08:35)
[2016-08-14] MEDS: INSULIN GLARGINE,HUM.REC.ANLOG 300 UNIT/3 ML INSULN.PEN SUBCUT SCH (09:45)
[2016-08-14] MEDS: CARVEDILOL 12.5 MG TABLET PO SCH (09:47)
[2016-08-14] MEDS: PANTOPRAZOLE SODIUM 40 MG VIAL IV SCH (09:47)
[2016-08-14 11:48] VITALS: BP 152/81
[2016-08-14 12:46] LABS: EPSTEIN BARR EARLY AG IGG AB <9.0 U/mL (0.0-8.9)
--- NOTE | 2016-08-14 13:01 | PDOC DISCHARGE SUMMARY ---
General - Admit/Disc Date/PCP Admission Date/Primary Care Provider: 08/11/16 17:13 Discharge Date: 08/14/16 - Discharge Diagnosis (1) Acute pancreatitis Is this a current diagnosis for this admission?: YesSummary: Working diagnosis based on markedly elevated lipase on presentation. Improved with routine care for pancreatitis with analgesics, antiemetics, IV fluids with improving trend for C reactive protein, normal lipid panel, and resolution of elevated amylase and lipase. CT of the abdomen and pelvis with IV contrast did not show evidence of peripancreatic stranding, pseudocyst or fluid collection. (2) Elevated amylase and lipase Is this a current diagnosis for this admission?: YesSummary: It's actually unclear to me whether an acute pancreatitis alone accounts for his presentation are not given the normal CT scan findings but that is the working diagnosis. The differential diagnosis is extensive and includes viral gastritis, esophagitis as well as peptic ulcer disease all of which can cause an elevation of the amylase and lipase. Therefore I think it also prudent to screen for H. pylori with serum antibody test (still pending at time of this dictation) and cover with PPI therapy twice a day for 2 weeks. If after cessation of PPI therapy his symptoms recur, I suspect at some point in the near future he will need referral to gastroenterology for upper endoscopy but anticipate discharge on 2 week course of PPI therapy twice a day. (3) Diabetes Is this a current diagnosis for this admission?: YesSummary: Covered with sliding scale and Lantus while here; hemoglobin A1c greater than 13. Patient reports 2 years ago his hemoglobin A1c was 13 and he was started on Lantus titrated up to 60 units daily and had good improvement with hemoglobin A1c down below 7.5 but for reasons that are not entirely clear to me he stopped the Lantus and here we are again. He claims he was told he didn't need it anymore. Resumed Lantus but only at 15 units daily until his appetite recurs. He should follow up with his primary care provider for further titration. He is to hold his metformin due to the possibility of recurrent nausea and vomiting which would cloud his clinical picture. (4) Abdominal pain Is this a current diagnosis for this admission?: YesSummary: Secondary to the above, largely resolved. Short course of narcotics for breakthrough pain at home. (5) Coronary artery disease Is this a current diagnosis for this admission?: YesSummary: Quiescent (6) Accelerated hypertension Is this a current diagnosis for this admission?: YesSummary: Improved with resumption of his usual home regimen, defer to his PCP at follow- up in one week for further titration. (7) Abnormal LFTs Is this a current diagnosis for this admission?: YesSummary: Transient and resolved, likely related to the above. - Additional Information Resuscitation Status: Full Code Discharge Diet: Other (Comments) - full liquid for 2 days then bland for 2d then reintroduce low fat, low protein diet Discharge Activity: Activity As Tolerated Home Medications: Aspirin [Aspirin 81 mg Chewable Tablet] 81 mg PO DAILY 08/11/16 Carvedilol [Coreg 25 mg Tablet] 25 mg PO Q12 08/11/16 Loratadine [Claritin 10 mg Tablet] 10 mg PO DAILY 08/11/16 Rosuvastatin Calcium [Crestor] 40 mg PO DAILY 08/11/16 Acetaminophen [Tylenol 325 mg Tablet] 650 mg PO Q4HP PRN tablet 08/14/16 Insulin Glargine,Hum.rec.anlog [Lantus Insulin 100 Unit/mL] 15 unit SUBCUT DAILY insuln.pen 08/14/16 Metformin HCl [Glucophage] 1,000 mg PO TID #0 08/14/16 Oxycodone HCl/Acetaminophen [Percocet 5-325 mg Tablet] 1 tab PO Q4HP PRN #14 tablet 08/14/16 Pantoprazole Sodium [Protonix] 40 mg PO BID #28 tablet. 08/14/16 History of Present Illness Patient complains of: Sharp stabbing epigastric pain History of Present Illness: SHARI FAM JR is a 46 year old male whose PCP is Dr. Luo, laboratory apparatus glass grinder is Dr. Tse presents to the ER from home with a 2 day history of sudden onset sharp stabbing epigastric pain radiating through to his back, no alleviating or exacerbating factors, associated with some shortness of breath and nausea with loss of appetite but no cardiac type chest pain, palpitations, fevers, chills, diarrhea, constipation or any change in his stools, dysuria, headache, dizziness , numbness and tingling, syncope or presyncope. Hospital Course Hospital Course: This is the second such episode since May when it was considered potential cardiac equivalent and he was evaluated in the emergency department and ruled out for acute cardiac ischemia, sent home with pain medicines and a referral for gastroenterology evaluation. He does have a strong coronary history having undergone 4 vessel CABG in 2008 with a history of long-standing hypertension and diabetes. He denies heartburn, food avoidance, burping belching, increased flatus, morning metallic taste in his mouth. He was diagnosed with acid reflux in the past, tried on Nexium but he didn't feel like he got any relief and stop that medication. He does take an aspirin daily due to his coronary disease but he denies chronic NSAID use including BC powders and Goody's powders. Family history is negative for GI disease including peptic ulcer disease, gastric tumors, Crohn's disease or ulcerative colitis. He was admitted to the hospital and treated presumptively for an acute pancreatitis. Evaluation for source was unrevealing as a CT scan of the abdomen and pelvis with IV contrast did not show any peripancreatic stranding or inflammation to suggest pancreatitis. His lipid panel while not at goal certainly didn't have triglycerides high enough to account for his presentation. He did have a leukocytosis that resolved with routine treatment and his C-reactive protein was elevated peaking at 22.5 and trending down at the day of discharge all implying systemic inflammation of some source. His history was worrisome for possible peptic ulcer disease as well so he was started on PPI therapy and Helicobacter pylori antigen was sent but is still pending at the time of discharge. His LFTs were also elevated and so I sent Jesika-Hopper and hepatitis panels both of which are still pending at the time of his discharge. He reports improved symptoms with no nausea or vomiting this morning. His epigastric pain has also improved, down to only 1 or 2 and only intermittent. He denies fevers, chills, diarrhea, constipation, headache, vision changes. At this point he has hemodynamic was stable for discharge home, able to maintain adequate oral intake and his pain is well-controlled on an oral regimen. He was instructed to continue a full liquid diet for another day and then advance to a bland diet for couple days before resuming his usual dietary regimen. He was instructed to avoid high fatty and high protein foods. He was instructed to follow up with his primary care provider in one week to follow-up on the pending labs and make sure he continues to progress. I recommend he continue PPI therapy twice a day for 2 weeks and if his symptoms were to recur after cessation of therapy I recommend outpatient evaluation by gastroenterology with upper endoscopy looking for gastritis, esophagitis, peptic ulcer disease. Of note, he reports his son is being evaluated for possible Crohn's disease so consideration for inflammatory bowel disease would need to be entertained if his symptoms were to recur. The patient expresses no concerns to me today about being discharged home. All questions were asked and answered to his satisfaction. He seems satisfied with the care he received here. Prescription's were provided for the necessary medication at discharge. Physical Exam Vital Signs: Temp Pulse Resp BP Pulse Ox 98.2 F 65 16 152/81 H 98 08/14/16 11:47 08/14/16 11:47 08/14/16 11:47 08/14/16 11:47 08/14/16 11:47 Intake & Output 08/13/16 08/14/16 08/15/16 06:59 06:59 06:59 Intake Total 2947 3145 Output Total 750 900 800 Balance 2197 2245 -800 PHYSICAL EXAM GENERAL: NAD; well developed, well nourished; mild obese; alert and oriented to person, place, time, situation HEENT: normocephalic, atraumatic; no conjunctival injection, no scleral icterus ; oral mucosa moist, RESPIRATORY: no accessory muscle use, no increased WOB, good air entry bilaterally; no wheezes, rales, rhonchi; no inspiratory crackles CARDIO: no JVD; RRR; no systolic murmur; no tachycardia VASCULAR: no pallor; 2+ radial, DP pulse; normal capillary refill GI: soft; nondistended; normal bowel sounds; no hepato spleno megaly; no rebound, rigidity, very mild epigastric and right upper quadrant tenderness to deep palpation, markedly improved NEURO: normal patella reflexes; normal sensation; normal motor function; no dysarthria; MSK: 5/5 strength; normal ROM hips; ambulatory without assistance; no tenderness EXTREMITIES: no calf tender; no palpable cords in calf; no clubbing, cyanosis , pedal edema PSYCH: normal affect, normal mood SKIN: warm; moist; no petechiae; no telengectasias; no jaundice; no rash Results Laboratory Results: 08/14/16 04:29 08/14/16 04:29 0208/14/16 08/14/16 19:44 04:29 04:29 WBC 7.7 RBC 4.74 Hgb 13.8 Hct 40.4 MCV 85 MCH 29.1 MCHC 34.2 RDW 12.4 Plt Count 315 Seg Neutrophils % 53.0 Lymphocytes % 34.4 Monocytes % 7.9 Eosinophils % 3.8 Basophils % 0.9 Absolute Neutrophils 4.1 Absolute Lymphocytes 2.7 Absolute Monocytes 0.6 Absolute Eosinophils 0.3 Absolute Basophils 0.1 Sodium 134.5 L Potassium 3.9 D Chloride 102 Carbon Dioxide 28 Anion Gap 5 BUN 12 Creatinine 0.88 Est GFR ( Amer) > 60 Est GFR (Non-Af Amer) > 60 Glucose 118 H Calcium 8.7 Magnesium 1.6 Total Bilirubin 0.6 AST 18 ALT 57 Alkaline Phosphatase 82 C-Reactive Protein 17.5 H Total Protein 5.1 L Albumin 2.1 L Amylase 50 Lipase 183.1 Stool Occult Blood NEGATIVE Impressions: Abdomen/Pelvis CT 08/11/16 13:25 IMPRESSION: NO SIGNIFICANT OR ACUTE FINDING IN THE ABDOMEN OR PELVIS ON CT SCAN WITH IV CONTRAST. Qualifiers PATEINT BEING DISCHARGED WITH ANY OF THE FOLLOWING DIAGNOSIS?: No VTE patient discharged on overlapping Therapy?: Yes Plan Discharge Plan: Discharge home with instructions as noted above. Follow-up with his PCP in one week. Return to the emergency department for worsening or recurrent symptoms. Time Spent: Greater than 30 Minutes
[2016-08-14] MEDS ORDERED: ATORVASTATIN CALCIUM 80 MG TABLET PO SCH (22:00)
== END 2016-08-14 12:38 | disposition home or self-care (01) | DRG 440 ==
LOC: ER 11:23 → EH 16:08 → UNDOADMIN 16:08 → EH 17:13 → 4W 18:51
PROC: 3E0F73Z Introduction of Anti-inflammatory into Respiratory Tract, Via Natural or Artificial Opening (ICD-10-PCS; principal; 2016-08-12)
DX: K85.00 Idiopathic acute pancreatitis without necrosis or infection (principal); E11.59 Type 2 diabetes mellitus with other circulatory complications; I11.9 Hypertensive heart disease without heart failure; I25.10 Atherosclerotic heart disease of native coronary artery without angina pectoris; R79.89 Other specified abnormal findings of blood chemistry; E78.5 Hyperlipidemia, unspecified; I25.2 Old myocardial infarction; Z88.6 Allergy status to analgesic agent; Z79.82 Long term (current) use of aspirin; Z79.899 Other long term (current) drug therapy; Z95.1 Presence of aortocoronary bypass graft; Z90.49 Acquired absence of other specified parts of digestive tract; Z83.3 Family history of diabetes mellitus; Z82.49 Family history of ischemic heart disease and other diseases of the circulatory system
CPT/HCPCS: 36415; 74177; 80053; 80061; 80074; 81001; 82150; 82272; 82962; 83036; 83690; 83735; 85025; 86140; 86256; 86663; 86664; 86665; 86677; 93005; 93010; 99284; J1650; J1815; J2270; J2405; J2550; J3490; J7120; S0164